=== PATIENT | male | born 1985 | race Caucasian/White ===

== ENCOUNTER 2020-09-16 17:05 | Emergency (ER) | payer MEDICAID, OTHER ==
[~2020-09-16] VITALS: Ht 165.1 cm; Wt 86.0 kg
[~2020-09-16 17:05] MED LIST: INHALER
[2020-09-16 21:29] LABS: CLARITY URINE CLEAR (CLEAR); COLOR URINE YELLOW (YELLOW); KETONES URINE NEGATIVE (NEGATIVE); LEUKOCYTE ESTERASE URINE NEGATIVE (NEGATIVE); NITRITE URINE NEGATIVE (NEGATIVE); OCCULT BLOOD URINE TRACE (NEGATIVE); PROTEIN URINE NEGATIVE (NEGATIVE); SPECIFIC GRAVITY URINE 1.022 (1.005-1.030); UROBILINOGEN URINE 0.2 E.U./dL (0.2-1.0)
[2020-09-16 23:38] VITALS: BP 135/88
== END 2020-09-16 23:39 | disposition home or self-care (01) ==
LOC: ER 17:24
DX: N50.812 Left testicular pain (principal); N50.811 Right testicular pain; R03.0 Elevated blood-pressure reading, without diagnosis of hypertension
CPT/HCPCS: 76870; 81003; 93005; 93976; 99285

== ENCOUNTER 2020-11-28 04:38 | Emergency (ER) | payer MEDICAID ==
[~2020-11-28] VITALS: Ht 175.3 cm; Wt 91.0 kg
[2020-11-28] MEDS ORDERED: KETOROLAC 30MG/ML VIAL IV STA (04:57)
[2020-11-28] MEDS ORDERED: ONDANSETRON HCL 4MG/2ML INJ IV STA (04:57)
[2020-11-28 05:15] LABS: BASOPHILS % 0.9 % (0.0-2.0); EOSINOPHILS % 1.6 % (0.0-5.0); HEMATOCRIT. 43.1 % (42.0-52.0); HEMOGLOBIN. 15.2 g/dL (14.0-18.0); LYMPHOCYTES % 34.9 % (20.0-50.0); MEAN CORPUSCULAR HEMOGLOBIN 32.8 pg (28.0-32.0); MEAN CORPUSCULAR VOLUME 92.9 fL (80.0-94.0); MEAN PLATELET VOLUME 8.2 fl (7.4-10.4); NEUTROPHILS % 54.6 % (40.0-76.0); PLATELET 274 x1000/uL (130-400); RED BLOOD CELL COUNT 4.64 mill/uL (4.7-6.1); RED CELL DISTRIBUTION WIDTH 13.6 % (11.6-14.6)
[2020-11-28 05:21] LABS: CHLORIDE 106 mEq/L (98-107)
[2020-11-28 05:24] LABS: ETHANOL BLOOD < 10 mg/dL
[2020-11-28] MEDS ORDERED: MORPHINE SULFATE 4 MG/ML CPJ (NOT FOR IM USE) IV ONE (06:45)
[2020-11-28 07:06] VITALS: BP 118/66
[2020-11-28 07:59] LABS: CLARITY URINE CLEAR (CLEAR); COLOR URINE YELLOW (YELLOW); KETONES URINE NEGATIVE (NEGATIVE); LEUKOCYTE ESTERASE URINE NEGATIVE (NEGATIVE); NITRITE URINE NEGATIVE (NEGATIVE); OCCULT BLOOD URINE NEGATIVE (NEGATIVE); PROTEIN URINE NEGATIVE (NEGATIVE); SPECIFIC GRAVITY URINE 1.024 (1.005-1.030)
[2020-11-28 08:08] LABS: *AMPHETAMINES SCREEN URINE NEGATIVE (NEGATIVE); *BARBITURATES SCREEN URINE NEGATIVE (NEGATIVE); *BENZODIAZEPINES SCREEN URINE NEGATIVE (NEGATIVE)
[2020-11-28 08:09] LABS: *COCAINE SCREEN URINE NEGATIVE (NEGATIVE); CANNABINOID URINE SCREEN NEGATIVE (NEGATIVE); METHADONE URINE SCREEN NEGATIVE (NEGATIVE); OPIATES URINE SCREEN NEGATIVE (NEGATIVE); PHENCYCLIDINE URINE SCREEN NEGATIVE (NEGATIVE)
[2020-11-28] MEDS ORDERED: ONDA4TAB5 PO (08:33)
[2020-11-28] MEDS ORDERED: T3 PO (08:33)
== END 2020-11-28 08:58 | disposition home or self-care (01) ==
LOC: ER 04:38
DX: R10.31 Right lower quadrant pain (principal); R03.0 Elevated blood-pressure reading, without diagnosis of hypertension
CPT/HCPCS: 36415; 74176; 80053; 80305; 80320; 81003; 83690; 85025; 93005; 96374; 96375; 99285; J1885; J2405; G0480